=== PATIENT | female | born 1990 | race Two or more races ===

== ENCOUNTER 2020-05-30 14:35 | Emergency (ER) | payer OTHER ==
[~2020-05-30] VITALS: Ht 170.2 cm; Wt 81.9 kg
[2020-05-30] MEDS ORDERED: BARIUM SULFATE 0.1% SUSPENSION 450 ML BOTTLE PO ONE (15:15)
[2020-05-30] MEDS ORDERED: PEG 3350/NA SULF,BICARB,CL/KCL 4000 ML SOLUTION PO ONE (15:15)
[2020-05-30 16:05] LABS: BASOPHILS % (AUTO) 0.3 % (0.0-2.0); EOSINOPHILS % (AUTO) 0 % (1.0-6.0); HEMATOCRIT 41.1 % (36-46); HEMOGLOBIN 13.7 g/dL (12.0-16.0); MEAN CORPUSCULAR HEMOGLOBIN 30.4 pg (26.0-34.0); MEAN CORPUSCULAR HGB CONC 33.3 G/dL (31.0-37.0); MEAN CORPUSCULAR VOLUME 91 fL (80-100); MONOCYTES # (AUTO) 0.4 K/uL (0.1-1.0); MONOCYTES % (AUTO) 7.3 % (2.0-9.0); NEUTROPHILS # (AUTO) 4.6 K/uL (1.8-7.7); NEUTROPHILS % (AUTO) 76.4 % (40.0-70.0); PLATELET COUNT (AUTO) 287 K/uL (150-450)
[2020-05-30 16:13] LABS: ANION GAP 5 mmol/L (8-16); CALCIUM, TOTAL 9.4 mg/dL (8.8-10.5); CARBON DIOXIDE 28 mmol/L (22-29); CHLORIDE 105 mmol/L (98-107); CREATININE 0.75 mg/dL (0.60-1.30); GLOMERULAR FILTR. RATE CALC > 60 mL/min (>60); GLUCOSE,RANDOM 104 mg/dL (70-110); POTASSIUM 3.4 mmol/L (3.5-5.1); SODIUM SERUM 138 mmol/L (136-145); UREA NITROGEN, BLOOD 7 mg/dL (7-18)
[2020-05-30 16:24] LABS: ALANINE AMINOTRANSFERASE 67 U/L (12-78); ALBUMIN 4.1 g/dL (3.4-5.0); ALKALINE PHOSPHATASE 51 U/L (46-116); ASPARTATE AMINOTRANSFERASE 21 U/L (15-37); BILIRUBIN,TOTAL 0.5 mg/dL (0.1-1.0); HCG,QUANTITATIVE 1 mIU/mL (0-6); TOTAL PROTEIN, SERUM 8.4 g/dL (6.4-8.2)
[2020-05-30] MEDS ORDERED: IOVERSOL 350 MG/ML 100 ML VIAL ONE (17:36)
[2020-05-30] MEDS ORDERED: SODIUM CHLORIDE 0.9% 100 ML ONE (17:36)
[2020-05-30] MEDS ORDERED: IBUPROFEN 400 MG TABLET PO ONE (20:00)
[2020-05-30] MEDS ORDERED: ACETAMINOPHEN 325 MG TABLET PO ONE (20:00)
[2020-05-30 20:20] VITALS: BP 123/84
== END 2020-05-30 20:29 | disposition home or self-care (01) ==
LOC: EMS 14:37
DX: T18.5XXA Foreign body in anus and rectum, initial encounter (principal); S09.90XA Unspecified injury of head, initial encounter; W19.XXXA Unspecified fall, initial encounter; Z91.81 History of falling; Y93.89 Activity, other specified; Y92.89 Other specified places as the place of occurrence of the external cause; Y99.8 Other external cause status
CPT/HCPCS: 36415; 70450; 72100; 74177; 80053; 84702; 85025; 93005; 99285; J7050; Q9967

== ENCOUNTER 2020-06-05 20:41 | Emergency (ER) | payer OTHER ==
[~2020-06-05] VITALS: Ht 165.1 cm; Wt 80.9 kg
[2020-06-05] MEDS ORDERED: CLON0.1T83 PO (21:12)
[2020-06-05] MEDS ORDERED: TRAZ-257 PO (21:16)
[2020-06-05] MEDS ORDERED: IBUP-2071 PO (21:16)
[2020-06-05] MEDS ORDERED: LOPE-202 PO (21:16)
[2020-06-05] MEDS ORDERED: PROM6.254 PO (21:16)
[2020-06-05] MEDS ORDERED: ALBU8HFA IH (21:17)
[2020-06-05] MEDS ORDERED: ACETAMINOPHEN 325 MG TABLET PO ONE (22:45)
[2020-06-05] MEDS ORDERED: ONDANSETRON HCL 4 MG TABLET PO ONE (22:45)
[2020-06-05 22:51] VITALS: BP 124/74
== END 2020-06-05 23:01 | disposition home or self-care (01) ==
LOC: EMS 20:41
DX: S09.90XA Unspecified injury of head, initial encounter (principal); W19.XXXA Unspecified fall, initial encounter; Y93.89 Activity, other specified; Y92.89 Other specified places as the place of occurrence of the external cause; Y99.8 Other external cause status
CPT/HCPCS: 70450; 99284; Q0162